=== PATIENT | female | born 1985 | race Caucasian/White ===

== ENCOUNTER 2021-04-27 15:39 | Outpatient (CLI) | payer BC ==
[2021-04-27 16:42] LABS: Hemoglobin 13.4 g/dL (12.0-15.5); Mean Corpuscular HGB CONC 31.8 g/dL (32.0-36.0); Mean Corpuscular Hemoglobin 30.7 pg (27.0-33.0); Mean Corpuscular Volume 96.6 fl (81.6-98.3); Mean Platelet Volume 9.9 fl (7.4-10.4); Platelet Count 247 10x3/uL (150-450); RBC Distribution Width 12.6 % (11.5-14.5); Red Blood Cell (RBC) Count 4.37 10x6/uL (3.90-5.03); White Blood Cell (WBC) Count 6.4 10x3/uL (3.5-10.5)
[2021-04-27 16:58] LABS: INR-International Normal Ratio 0.9; PTT 26.1 sec (22.0-33.0); Prothrombin Time 9.9 sec (9.5-12.1)
[2021-04-27 17:00] LABS: Anion Gap 14 mmol/L (10-20); BUN (Urea Nitrogen) 14 mg/dL (7.0-18.7); Calc. Creatinine Clearance 0 mL/min (70-130); Calcium 9.2 mg/dL (7.8-10.44); Carbon Dioxide 24 mmol/L (22-29); Chloride 106 mmol/L (98-107); Glucose 96 mg/dL (70-105); Potassium 4.1 mmol/L (3.5-5.1); Sodium 140 mmol/L (136-145)
[2021-04-28 11:15] LABS: SARS-CoV-2 PCR by NAA Not Detected (NotDetected)
== END 2021-04-27 15:40 | disposition home or self-care (01) ==
LOC: LABBT 15:39
PROVIDERS: ATTEND Surgery
DX: Z01.818 Encounter for other preprocedural examination (principal); M51.16 Intervertebral disc disorders with radiculopathy, lumbar region; M21.372 Foot drop, left foot; Z20.822 Contact with and (suspected) exposure to COVID-19
CPT/HCPCS: 80048; 85027; 85610; 85730; 93005; 93010; U0003; U0005

== ENCOUNTER 2021-04-29 07:26 | Observation (INO) | payer BC ==
[2021-04-28 09:40] VITALS: BMI 32.1
[2021-04-29] MEDS ORDERED: Midazolam HCl 2 mg/2 ml Vial ONE ×2 (09:24→09:46)
[2021-04-29] MEDS ORDERED: Thrombin 5000 UNITS/5 ML VIAL ONE (09:39)
[2021-04-29] MEDS ORDERED: Fentanyl 250 MCG/5 ML VIAL ONE ×2 (09:46→12:23)
[2021-04-29] MEDS ORDERED: Ketamine 50 MG/ML (10ML VIAL) ONE (09:46)
[2021-04-29] MEDS ORDERED: HYDROmorphone 0.5 MG/0.5 ML SYRINGE ONE (09:46)
[2021-04-29] MEDS ORDERED: ceFAZolin Sodium (SDC) 2 GM/100 ML BAG ONE (09:53)
[2021-04-29] MEDS ORDERED: PROPOFOL 200 MG/20 ML VIAL ONE (10:04)
[2021-04-29] MEDS ORDERED: Ondansetron PF 4 MG/2 ML Vial ONE (10:04)
[2021-04-29] MEDS ORDERED: Glycopyrrolate 0.2 MG/ML 5 ML SYRINGE ONE (10:04)
[2021-04-29] MEDS ORDERED: Lidocaine 1% PF 5 ML VIAL ONE (10:04)
[2021-04-29] MEDS ORDERED: Rocuronium Bromide 10 MG/ML (10ML VIAL) ONE (10:04)
[2021-04-29] MEDS ORDERED: Dexamethasone 20 MG/5 ML VIAL ONE (10:04)
[2021-04-29] MEDS ORDERED: Ketorolac Tromethamine 30 MG/ML VIAL ONE (10:04)
[2021-04-29] MEDS ORDERED: HYDROmorphone 2 MG/ML VIAL SLOW IVP PRN (11:52)
[2021-04-29] MEDS ORDERED: Ondansetron HCl/PF 4 MG/2 ML Vial IVP PRN (11:52)
[2021-04-29] MEDS ORDERED: Promethazine HCl 25 MG/ML VIAL IVPB PRN (11:52)
[2021-04-29] MEDS ORDERED: Promethazine HCl 25 MG/ML VIAL IM PRN (11:52)
[2021-04-29] MEDS ORDERED: Meperidine HCl/PF 25 MG/ML VIAL SLOW IVP PRN (11:52)
[2021-04-29] MEDS ORDERED: HYDROmorphone 2 MG/ML VIAL ONE ×2 (12:24)
[2021-04-29] MEDS ORDERED: Acetaminophen/Codeine 30-300mg Tablet PO PRN (12:27)
[2021-04-29] MEDS ORDERED: traMADol HCl 50 MG TAB PO PRN (12:27)
[2021-04-29] MEDS ORDERED: Acetaminophen 325 MG TAB PO PRN (12:27)
[2021-04-29] MEDS ORDERED: Cyclobenzaprine 10 MG TAB PO PRN (12:33)
[2021-04-29] MEDS ORDERED: hydrALAZINE 20 MG/ML VIAL ONE (12:50)
[2021-04-29] MEDS ORDERED: Morphine 4 MG/ML VIAL SLOW IVP PRN (13:06)
[2021-04-29] MEDS ORDERED: Labetalol HCl 100 MG/20 ML VIAL ONE (13:57)
[2021-04-29] MEDS: Sodium Chloride 0.9% 1,000 ML IV SCH (15:17)
[2021-04-29] MEDS: HYDROcodone/Acetaminophen 7.5/325 mg Tablet PO PRN ×2 (16:09→22:34)
[2021-04-29] MEDS: CEFAZOLIN 2 GM, Admixture Fee 1 EACH in Sodium Chloride 0.9% 100 ML IVPB SCH (17:54)
[2021-04-29] MEDS: CeleCOXIB 100 MG CAP PO SCH (20:18)
[2021-04-29] MEDS ORDERED: Gabapentin 300 MG CAP PO SCH (21:00)
[2021-04-30] MEDS: Sodium Chloride 0.9% 1,000 ML IV SCH (00:55)
[2021-04-30] MEDS: CEFAZOLIN 2 GM, Admixture Fee 1 EACH in Sodium Chloride 0.9% 100 ML IVPB SCH (01:34)
[2021-04-30] MEDS: HYDROcodone/Acetaminophen 7.5/325 mg Tablet PO PRN ×2 (03:58→10:16)
[2021-04-30] MEDS: CeleCOXIB 100 MG CAP PO SCH (08:21)
[2021-04-30 08:58] VITALS: BP 132/83; TEMP 98.7
[2021-04-30] MEDS ORDERED: Gabapentin 300 MG CAP PO SCH (09:00)
[2021-04-30] MEDS ORDERED: LEVONORGESTREL ETHIN ESTRADIOL PO SCH (09:00)
[2021-04-30] MEDS ORDERED: Escitalopram Oxalate 10 mg Tablet PO SCH (09:00)
== END 2021-04-30 10:30 | disposition home or self-care (01) ==
LOC: SDC 07:26 → SURG A 12:27
PROVIDERS: ADMIT Surgery; ATTEND Surgery
PROC: 0SB20ZZ Excision of Lumbar Vertebral Disc, Open Approach (ICD-10-PCS; principal; 2021-04-29)
PROC: 0SB40ZZ Excision of Lumbosacral Disc, Open Approach (ICD-10-PCS; 2021-04-29)
DX: M51.16 Intervertebral disc disorders with radiculopathy, lumbar region (principal); M51.17 Intervertebral disc disorders with radiculopathy, lumbosacral region; M21.372 Foot drop, left foot; I10 Essential (primary) hypertension; G89.4 Chronic pain syndrome; E66.9 Obesity, unspecified; Z68.32 Body mass index [BMI] 32.0-32.9, adult; Z79.899 Other long term (current) drug therapy; Z88.1 Allergy status to other antibiotic agents; Z88.2 Allergy status to sulfonamides
CPT/HCPCS: 76000; 96374; 96376; G0378; J0360; J0690; J1100; J1170; J1885; J2250; J2405; J2704; J3010; J3370; J3490; J7050